=== PATIENT | male | born 1950 | race Caucasian/White ===

== ENCOUNTER 2021-03-27 09:48 | Outpatient (CLI) | payer MEDICARE, OTHER ==
[2021-03-27 10:39] LABS: ALBUMIN 4.4 g/dL (3.2-5.5); ALBUMIN/GLOBULIN RATIO 1.3 (1.0-2.2); ALKALINE PHOSPHATASE 77 IU/L (42-121); ALT ALANINE AMINOTRANSFERASE 13 IU/L (10-60); AST ASPARTATE AMINOTRANSFERASE 19 IU/L (10-42); BILIRUBIN,TOTAL 1.4 mg/dL (0.2-1.0); BUN - BLOOD UREA NITROGEN 12 mg/dL (6-20); CALCIUM 9.5 mg/dL (8.5-10.3); CARBON DIOXIDE - CO2 27 mmol/L (21-32); CHLORIDE 99 mmol/L (101-111); CHOL/HDL RATIO 2.4 (<5.0); CHOLESTEROL 132 mg/dL; CREATININE 0.9 mg/dL (0.6-1.2); GFR - MDRD 84 (>89); GLUCOSE 148 mg/dL (70-100); HDL CHOLESTEROL 56 mg/dL; LDL CHOLESTEROL,CALCULATED 62 mg/dL; LDL/HDL RATIO 1.1 (<3.6); POTASSIUM 4.2 mmol/L (3.5-5.0); SODIUM 137 mmol/L (135-145); TOTAL PROTEIN 7.9 g/dL (6.7-8.2); TRIGLYCERIDES 68 mg/dL; VLDL CHOLESTEROL 14 mg/dL
[2021-03-27 12:51] LABS: ESTIMATED AVERAGE GLUCOSE 183 mg/dL (70-100)
== END 2021-03-27 09:49 | disposition home or self-care (01) ==
LOC: LAB 09:48
PROVIDERS: ATTEND Internal Medicine
DX: I10 Essential (primary) hypertension (principal); E78.5 Hyperlipidemia, unspecified; E11.9 Type 2 diabetes mellitus without complications; Z12.5 Encounter for screening for malignant neoplasm of prostate
CPT/HCPCS: 36415; 80053; 80061; 83036; G0103; 83721; 84153

== ENCOUNTER 2021-09-26 08:28 | Outpatient (CLI) | payer MEDICARE ==
[2021-09-26 08:51] LABS: BASOPHILS # (AUTO) 0.1 10^3/uL (0.0-0.1); BASOPHILS % (AUTO) 0.9 %; EOSINOPHILS % (AUTO) 0.3 %; HCT - HEMATOCRIT 47.3 % (42.0-52.0); HGB - HEMOGLOBIN 15.2 g/dL (14.0-18.0); LYMPHOCYTES % (AUTO) 24.9 %; MEAN CORPUSCULAR HEMOGLOBIN 30.7 pg (27.0-31.0); MEAN CORPUSCULAR HGB CONC 32.1 g/dL (32.0-36.0); MEAN CORPUSCULAR VOLUME 95.6 fL (80.0-94.0); MEAN PLATELET VOLUME 9.6 fL (7.4-11.4); MONOCYTES # (AUTO) 0.8 10^3/uL (0.0-1.0); MONOCYTES % (AUTO) 9.9 %; NEUTROPHILS # (AUTO) 5.1 10^3/uL (1.5-6.6); NEUTROPHILS % (AUTO) 63.6 %; PLT - PLATELET COUNT 235 10^3/uL (130-450); RED BLOOD COUNT 4.95 10^6/uL (4.70-6.10); RED CELL DISTRIBUTION WIDTH 12.7 % (12.0-15.0)
[2021-09-26 09:11] LABS: ALBUMIN 4.3 g/dL (3.2-5.5); ALBUMIN/GLOBULIN RATIO 1.2 (1.0-2.2); ALKALINE PHOSPHATASE 77 IU/L (42-121); ALT ALANINE AMINOTRANSFERASE 14 IU/L (10-60); AST ASPARTATE AMINOTRANSFERASE 17 IU/L (10-42); BILIRUBIN,TOTAL 1.1 mg/dL (0.2-1.0); BUN - BLOOD UREA NITROGEN 15 mg/dL (6-20); CALCIUM 9.3 mg/dL (8.5-10.3); CARBON DIOXIDE - CO2 28 mmol/L (21-32); CHLORIDE 101 mmol/L (101-111); CHOL/HDL RATIO 2.3 (<5.0); CHOLESTEROL 130 mg/dL; CREATININE 0.8 mg/dL (0.6-1.2); GFR - MDRD 96 (>89); GLUCOSE 160 mg/dL (70-100); HDL CHOLESTEROL 57 mg/dL; LDL CHOLESTEROL,CALCULATED 61 mg/dL; LDL/HDL RATIO 1.1 (<3.6); POTASSIUM 5.5 mmol/L (3.5-5.0); SODIUM 139 mmol/L (135-145); TOTAL PROTEIN 7.9 g/dL (6.7-8.2); TRIGLYCERIDES 59 mg/dL; VLDL CHOLESTEROL 12 mg/dL
[2021-09-26 11:28] LABS: ESTIMATED AVERAGE GLUCOSE 160 mg/dL (70-100); HEMOGLOBIN A1c% 7.2 % (4.27-6.07)
== END 2021-09-26 08:29 | disposition home or self-care (01) ==
LOC: LAB 08:28
PROVIDERS: ATTEND Internal Medicine
DX: E11.9 Type 2 diabetes mellitus without complications (principal); R97.20 Elevated prostate specific antigen [PSA]
CPT/HCPCS: 36415; 80053; 80061; 83036; 83721; 85025

== ENCOUNTER 2022-03-19 08:12 | Outpatient (CLI) | payer MEDICARE | END 2022-03-19 08:13 | disposition home or self-care (01) | LOC: LAB 08:12 | PROVIDERS: ATTEND Internal Medicine | DX: R97.20 Elevated prostate specific antigen [PSA] (principal) | CPT/HCPCS: 36415; 84153 ==

== ENCOUNTER 2022-08-27 08:32 | Outpatient (CLI) | payer MEDICARE ==
[2022-08-27 09:40] LABS: ALBUMIN 3.8 g/dL (3.2-5.5); ALBUMIN/GLOBULIN RATIO 1.2 (1.0-2.2); BILIRUBIN,TOTAL 0.8 mg/dL (0.2-1.0); CALCIUM 9.3 mg/dL (8.5-10.3); CREATININE 0.8 mg/dL (0.6-1.2); POTASSIUM 4.4 mmol/L (3.5-5.0); TOTAL PROTEIN 7.1 g/dL (6.7-8.2)
[2022-08-27 12:59] LABS: ESTIMATED AVERAGE GLUCOSE 278 mg/dL (70-100); HEMOGLOBIN A1c% 11.3 % (4.27-6.07)
== END 2022-08-27 08:33 | disposition home or self-care (01) ==
LOC: LAB 08:32
PROVIDERS: ATTEND Registered Nurse
DX: E11.9 Type 2 diabetes mellitus without complications (principal)
CPT/HCPCS: 36415; 80053; 83036

== ENCOUNTER 2022-12-07 09:34 | Outpatient (CLI) | payer MEDICARE ==
[2022-12-07 10:05] LABS: CREATININE 0.7 mg/dL (0.6-1.2); POTASSIUM 4.1 mmol/L (3.5-5.0)
[2022-12-07 11:43] LABS: ESTIMATED AVERAGE GLUCOSE 286 mg/dL (70-100); HEMOGLOBIN A1c% 11.6 % (4.27-6.07)
[2022-12-07 11:58] LABS: CREATININE,URINE 40.4 mg/dL; MICROALBUM/CREATININE RATIO,UR 89.1 ug/mg (<30.0); MICROALBUMIN,URINE 3.6 mg/dL (0-300.0)
== END 2022-12-07 09:35 | disposition home or self-care (01) ==
LOC: LAB 09:34
PROVIDERS: ATTEND Registered Nurse
DX: E11.8 Type 2 diabetes mellitus with unspecified complications (principal)
CPT/HCPCS: 36415; 80048; 82043; 82570; 83036

== ENCOUNTER 2023-03-04 09:35 | Outpatient (CLI) | payer MEDICARE ==
[2023-03-04 10:08] LABS: CALCIUM 9.1 mg/dL (8.5-10.3); CREATININE 0.9 mg/dL (0.6-1.2); POTASSIUM 4.4 mmol/L (3.5-5.0)
[2023-03-04 10:32] LABS: ESTIMATED AVERAGE GLUCOSE 303 mg/dL (70-100); HEMOGLOBIN A1c% 12.2 % (4.27-6.07)
[2023-03-04 16:46] LABS: CREATININE,URINE 42.3 mg/dL; MICROALBUM/CREATININE RATIO,UR 30.7 ug/mg (<30.0); MICROALBUMIN,URINE 1.3 mg/dL (0-300.0)
== END 2023-03-04 09:36 | disposition home or self-care (01) ==
LOC: LAB 09:35
PROVIDERS: ATTEND Registered Nurse
DX: E11.8 Type 2 diabetes mellitus with unspecified complications (principal)
CPT/HCPCS: 36415; 80048; 82043; 82570; 83036

== ENCOUNTER 2023-04-29 09:44 | Outpatient (CLI) | payer MEDICARE ==
--- NOTE | 2023-04-29 10:55 | SLEEP CARE CONSULTATION ---
Information from patient questionnaire entered by Kelly Ferguson. I have reviewed and concur with the information entered by Kelly Ferguson. This document represents the service I personally performed and the decisions made by me, Terri Fisher ARNP. History of Present Illness Service Date and Time: 04/29/2023 0944 Reason for Visit: New patient Chief Complaint: reports: Unrefreshed sleep, Fatigue Date of Onset: SEVERAL YRS Usual bedtime: 10-11PM Time it takes to fall asleep: 5-10MIN Snores at night: No (snored when he was younger) Observed to quit breathing while asleep: No Sleeps alone due to snoring: No Number of times waking at night: 2 Reasons for waking at night: reports: Snoring, Bathroom. denies: Choking, Gasping for air Toss, Turn, or Twitch while sleeping: Yes Recalls having dreams: No Usually gets out of bed at: 7AM Feels refreshed in the morning: No Morning headache: No Sleepy or fatigued during the day: Yes Ever fallen asleep while driving: No Takes day naps: Yes (1-2 daily, 30 minutes to couple hours) Dreams during day naps: No Prior sleep studies: No Additional HPI information: I had the pleasure of seeing JEAN PIERRE MARTINEZ today regarding the possibility of him having a sleep disorder. His current complaints are unrefreshed sleep and fatigue. He states he is always tired and wakes up feeling tired. He states he snored when he was younger but his tells him that he does not snore. He has talked in his sleep occasionally. 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 Patient is and lives in . Have you smoked in the past 12 months: No Alcohol use: Yes Alcohol amount and frequency: 1 BEER EVERY OTHER WEEK Caffeine use: Yes Caffeine amount and frequency: 3 CUPS DAILY Family History Family history of sleep disordered breathing: Yes Family Hx Sleep Apnea: Mother: Snoring, Sibling: Snoring Allergies and Home Medications Known drug allergies: Yes (LISINOPRIL) Drug allergies reviewed: Yes Home medication list reviewed: Yes (see updated list in EMR) Review of Systems Weight gain over past 5 years: 50, up in weight now Weight loss over past 5 years: 50 Cardiovascular: reports: high blood pressure Respiratory: reports: shortness of breath Gastrointestinal: reports: heartburn, difficulty swallowing, nausea, diarrhea Urinary: reports: frequency, impotence Neurological: reports: disorientation, gait or balance problems. denies: headaches Psychiatric: reports: anxiety, depression Ear/Nose/Throat: reports: nose bleeds. denies: tonsillectomy Endocrine: reports: sluggishness, too hot or cold, excessive thirst, increased urination Musculoskeletal: reports: joint pain Immunologic: reports: sneezing Physical Exam Vital signs obtained and entered by: KELLY Jenkins MA Blood Pressure: 112/60 (LEFT ARM) Cuff size: long Heart Rate: 82 O2 Saturation: 98 Height: 5 ft 9 in Weight: 261 lb 12.8 oz Body Mass Index: 38.6 BMI Classification: Obese Neck circumference: 16.5 Mouth and throat: narrow oropharynx Soft palate: long Hard palate: normal Uvula: normal Uvula visualization: 25% Mallampati Class III Tongue: enlarged in size with teeth levy on lateral edges Tonsils: small Neck: normal w/o lymphadenopathy or thyromegaly Heart: regular rate and rhythm Lungs: clear bilaterally Impression and Plan 1. Suspected Obstructive Sleep Apnea-Hypopnea Syndrome, as suggested by a history of possible snoring, unrefreshed sleep, cognitive impairment, and exc essive daytime sleepiness. Narrow oropharynx and obesity are common predisposing factors for obstructive sleep apnea-hypopnea syndrome. I recommend proceeding to polysomnography to confirm the diagnosis and to assess severity. If the patient has significant sleep disordered breathing, a manual CPAP titration study will also be performed to find the optimal treatment pressure. I informed the patient of what the sleep studies involve and after some discussion, obtained agreement to proceed. The pathophysiology of obstructive sleep apnea-hypopnea syndrome was discussed with the patient and health risks of cardiovascular and cerebrovascular disease if not treated. 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 Patient agreed to plan. * Schedule polysomnography +- manual CPAP titration study and return in 1-2 weeks after the study to discuss result and initiate therapy. * Avoid long distance driving or driving when feeling sleepy. * Avoid alcohol, sedative and muscle relaxant around bedtime. * Attempt to lose weight. * Review instructions provided by trained office staff on how to prepare for the sleep study. * Return for follow-up after sleep study completed. Counseling Topics: Weight loss health impact Visit Type: In Office Time Spent with Patient (minutes): 32 Provider Statement: I spent 100% of the Face to Face Visit with the patient with greater than 50% spent counseling the patient and coordination of care.
[2023-04-29 10:58] VITALS: BP 112/60
== END 2023-04-29 09:45 | disposition home or self-care (01) ==
LOC: SC 09:44
PROVIDERS: ATTEND Nurse Practitioner Family
DX: G47.10 Hypersomnia, unspecified (principal); G47.8 Other sleep disorders; R41.89 Other symptoms and signs involving cognitive functions and awareness; E66.9 Obesity, unspecified; Z68.38 Body mass index [BMI] 38.0-38.9, adult
CPT/HCPCS: 99203; G0463; 99212

== ENCOUNTER 2023-05-15 19:20 | Outpatient (CLI) | payer MEDICARE | END 2023-05-15 19:21 | disposition home or self-care (01) | LOC: SC 19:20 | PROVIDERS: ATTEND Nurse Practitioner Family | DX: G47.33 Obstructive sleep apnea (adult) (pediatric) (principal); E66.9 Obesity, unspecified; Z68.38 Body mass index [BMI] 38.0-38.9, adult | CPT/HCPCS: 95810 ==

== ENCOUNTER 2023-06-11 08:46 | Outpatient (CLI) | payer MEDICARE ==
[2023-06-11 11:29] LABS: MICROALBUMIN,URINE 1.6 mg/dL
== END 2023-06-11 08:47 | disposition home or self-care (01) ==
LOC: LAB 08:46
PROVIDERS: ATTEND Registered Nurse
DX: E11.8 Type 2 diabetes mellitus with unspecified complications (principal)
CPT/HCPCS: 82043; 82570

== ENCOUNTER 2023-09-09 08:32 | Outpatient (CLI) | payer MEDICARE ==
[2023-09-09 09:03] LABS: CALCIUM 9.6 mg/dL (8.5-10.3); CREATININE 0.8 mg/dL (0.6-1.3); POTASSIUM 3.9 mmol/L (3.5-4.5)
[2023-09-09 10:03] LABS: ESTIMATED AVERAGE GLUCOSE 220 mg/dL (70-100); HEMOGLOBIN A1c% 9.3 % (4.27-6.07)
[2023-09-09 11:22] LABS: CREATININE,URINE 61.9 mg/dL; MICROALBUM/CREATININE RATIO,UR 58.2 ug/mg (<30.0); MICROALBUMIN,URINE 3.6 mg/dL
== END 2023-09-09 08:33 | disposition home or self-care (01) ==
LOC: LAB 08:32
PROVIDERS: ATTEND Registered Nurse
DX: E11.8 Type 2 diabetes mellitus with unspecified complications (principal)
CPT/HCPCS: 36415; 80048; 82043; 82570; 83036

== ENCOUNTER 2024-06-20 10:49 | Outpatient (CLI) | payer MEDICARE ==
[2024-06-20 11:42] LABS: ESTIMATED AVERAGE GLUCOSE 192 mg/dL (70-100); HEMOGLOBIN A1c% 8.3 % (4.27-6.07)
== END 2024-06-20 10:50 | disposition home or self-care (01) ==
LOC: LAB 10:49
PROVIDERS: ATTEND Registered Nurse
DX: E11.8 Type 2 diabetes mellitus with unspecified complications (principal)
CPT/HCPCS: 36415; 83036